=== PATIENT | female | born 1950 | race Caucasian/White ===

== ENCOUNTER 2023-02-07 16:06 | Emergency (ER) | payer MEDICARE, MEDICAID, SELFPAY ==
[2023-02-07 16:08] VITALS: BP 140/76; PULSE 99; RESP 18; TEMP 36.4; O2SAT 100
--- NOTE | 2023-02-07 16:51 | ED.SKABFB ---
HPI - Skin/Abscess/Foreign Bdy General Chief complaint: Skin/Abscess/Foreign Body Stated complaint: blisters on leg for 2 weeks Time Seen by Provider: 02/07/23 16:14 Source: patient Mode of arrival: ambulatory Limitations: no limitations History of Present Illness HPI narrative: 72-year-old female presents today with complaints of wounds and redness to the right lower extremity. Patient denies fevers, body aches, chills. Denies purulent drainage. Denies trauma to that area recently. Patient does state a couple weeks ago there were blisters and she popped them and has been picking at them since. Related Data Allergies Allergy/AdvReac Type Severity Reaction Status Date / Time No Known Allergies Allergy Verified 02/07/23 16:07 Review of Systems Review of Systems: All systems reviewed & are unremarkable except as noted in HPI and below ENT: Reports as per HPI Cardiovascular: Cardiovascular: Reports as per HPI Respiratory: Respiratory: Reports as per HPI Gastrointestinal: Gastrointestinal: Reports as per HPI Musculoskeletal: Musculoskeletal: Reports as per HPI Integumentary/Breasts: Skin/Breast: Reports as per HPI Neurologic: Reports as per HPI Psychiatric: Psychiatric: Reports as per HPI Exam Const: General: cooperative, healthy appearing, comfortable, no acute distress and well developed Orientation/consciousness: patient oriented x3 HENMT: Head: normal to inspection Eyes: General: appearance normal, both eyes and all related structures Resp: Effort & Inspection: normal respiratory effort and able to speak in complete sentences Auscultation: clear to auscultation bilaterally Cardio: Rate: regular rate Rhythm: regular rhythm Heart sounds: S1 normal heart sound present and S2 normal heart sound present Skin: Other: Right lower extremity with erythema and warmth. Multiple scabs noted to right [place] with erythema around it. No purulent drainage. Minimal swelling to the right lower extremity noted. Neuro: General: patient oriented x3 Course Vital Signs Vital signs: Vital Signs Temperature 97.6 F 02/07/23 16:08 Pulse Rate 99 02/07/23 16:08 Respiratory Rate 18 02/07/23 16:08 Blood Pressure 140/76 02/07/23 16:08 Pulse Oximetry 100 02/07/23 16:08 Oxygen Delivery Room Air 02/07/23 16:08 Temperature 97.6 F 02/07/23 16:08 Pulse Rate 99 02/07/23 16:08 Respiratory Rate 18 02/07/23 16:08 Blood Pressure 140/76 02/07/23 16:08 Pulse Oximetry 100 02/07/23 16:08 Oxygen Delivery Room Air 02/07/23 16:08 MDM - Skin/Abscess/Foreign Bdy MDM Narrative Medical decision making narrative: 72-year-old female HPI as noted. Concerns for cellulitis. Patient has been afebrile without body aches or chills. Heart rate is 99 but upon re exam heart rate was 75. No concerns for sepsis or no indications for lab work to be done at this time. Will treat with antibiotics and discharged home. Differential Diagnosis Differential diagnosis: Likely abscess of skin or subcutaneous tissue, cellulitis, insect bites, impetigo and contact dermatitis Discharge Plan Discharge Clinical Impression: Cellulitis Patient Disposition: Home, Self-Care Condition: Stable Instructions: Antibiotic Form, Cellulitis (ED) Additional Instructions: please wash wounds at least daily with soap and water. Do not pick at them. May cover with antibiotic ointment, non adherent dressing, and wrap to stay in place. May do this until healed. follow up with your primary care provider in 1 week or sooner if needed. return with any new or worsening concerns. Prescriptions: New cephalexin 500 mg capsule 500 mg PO Q12H Qty: 14 0RF Follow-up/Referrals: UNKNOWN,DOCTOR [Non-Staff] - Time of Disposition: 17:06
== END 2023-02-07 17:16 | disposition home or self-care (01) ==
PROVIDERS: Emergency Provider Nurse Practitioner Family
DX: L03.115 Cellulitis of right lower limb (principal)
CPT/HCPCS: 99283